=== PATIENT | female | born 1990 | race African-American/Black ===

== ENCOUNTER 2022-10-10 15:27 | Emergency (ER) | payer OTHER ==
[~2022-10-10] VITALS: Ht 172.7 cm; Wt 117.0 kg
[2022-10-10 18:57] LABS: CLARITY URINE CLEAR (CLEAR); COLOR URINE YELLOW (YELLOW); KETONES URINE NEGATIVE (NEGATIVE); LEUKOCYTE ESTERASE URINE NEGATIVE (NEGATIVE); NITRITE URINE NEGATIVE (NEGATIVE); OCCULT BLOOD URINE 3+ (NEGATIVE); PH URINE 6.5 (4.5-8.0); PROTEIN URINE NEGATIVE (NEGATIVE); SPECIFIC GRAVITY URINE 1.004 (1.005-1.030); UROBILINOGEN URINE 0.2 E.U./dL (0.2-1.0)
[2022-10-10] MEDS ORDERED: KETOROLAC 60MG/2ML VIAL IM ONE (19:45)
[2022-10-10] MEDS ORDERED: CEPH500C2 MT (19:57)
[2022-10-10] MEDS ORDERED: CEPHALEXIN 250MG CAPSULE PO ONE (20:15)
[2022-10-10 21:01] VITALS: BP 159/98
== END 2022-10-10 21:03 | disposition home or self-care (01) ==
LOC: ER 15:27
DX: N39.0 Urinary tract infection, site not specified (principal); J02.9 Acute pharyngitis, unspecified; I10 Essential (primary) hypertension; Z68.41 Body mass index [BMI] 40.0-44.9, adult; J45.909 Unspecified asthma, uncomplicated; E03.9 Hypothyroidism, unspecified
CPT/HCPCS: 81003; 81025; 96372; 99283; J1885; Z7610

== ENCOUNTER 2022-11-03 19:02 | Emergency (ER) | payer OTHER ==
[~2022-11-03] VITALS: Ht 172.7 cm; Wt 114.0 kg
[~2022-11-03 19:02] MED LIST: CEPH500C2 MT
[2022-11-03 19:07] VITALS: BP 123/82
[2022-11-03] MEDS ORDERED: ALBUTEROL (0.083%) 2.5MG/3ML NEB HHN STA (22:31)
[2022-11-03] MEDS ORDERED: IPRATROPIUM BROMIDE (0.02%) 0.5MG/2.5ML NEB HHN STA (22:31)
[2022-11-03] MEDS ORDERED: ALBU6.7H3 INH (22:34)
[2022-11-03] MEDS ORDERED: DEXAMETHASONE 2MG TABLET PO ONE (22:45)
[2022-11-04] MEDS ORDERED: NAPR500T7 MT (01:05)
== END 2022-11-04 01:00 | disposition home or self-care (01) ==
LOC: ER 19:02
DX: R06.2 Wheezing (principal); M25.572 Pain in left ankle and joints of left foot
CPT/HCPCS: 73590; 73610; 73630; 81025; 99284; J8540; Z7610

== ENCOUNTER 2023-03-23 07:19 | Emergency (ER) | payer MEDICAID, OTHER ==
[~2023-03-23] VITALS: Ht 172.7 cm; Wt 113.0 kg
[~2023-03-23 07:19] MED LIST changes: +ALBU6.7H3 INH; +NAPR500T7 MT
[2023-03-23 07:24] VITALS: BP 132/76; PULSE 87; RESP 20; TEMP 98; O2SAT 100
[2023-03-23 08:25] LABS: BASOPHILS % 0.8 % (0.0-2.0); EOSINOPHILS % 4.5 % (0.0-5.0); HEMATOCRIT. 31.6 % (36.0-48.0); HEMOGLOBIN. 10.2 g/dL (12.0-16.0); LYMPHOCYTES % 31.6 % (20.0-50.0); MEAN CORPUSCULAR HEMOGLOBIN 25.9 pg (28.0-32.0); MEAN PLATELET VOLUME 9.7 fl (7.4-10.4); MONOCYTES % 7.9 % (2.0-8.0); NEUTROPHILS % 55.2 % (40.0-76.0); PLATELET 199 x1000/uL (130-400); RED BLOOD CELL COUNT 3.95 mill/uL (4.2-5.4); RED CELL DISTRIBUTION WIDTH 13.9 % (11.6-14.6)
[2023-03-23 08:27] LABS: CLARITY URINE TURBID (CLEAR); COLOR URINE RED (YELLOW); KETONES URINE NEGATIVE (NEGATIVE); LEUKOCYTE ESTERASE URINE 2+ (NEGATIVE); NITRITE URINE POSITIVE (NEGATIVE); OCCULT BLOOD URINE 3+ (NEGATIVE); PH URINE 5.5 (4.5-8.0); PROTEIN URINE 3+ (NEGATIVE); SPECIFIC GRAVITY URINE 1.028 (1.005-1.030); UROBILINOGEN URINE 0.2 E.U./dL (0.2-1.0)
[2023-03-23 08:32] LABS: CHLORIDE 110 mEq/L (98-107)
[2023-03-23] MEDS ORDERED: NORE0.3536 MT (10:02)
== END 2023-03-23 10:18 | disposition home or self-care (01) ==
LOC: ER 07:27
DX: N93.8 Other specified abnormal uterine and vaginal bleeding (principal); N39.0 Urinary tract infection, site not specified; J45.909 Unspecified asthma, uncomplicated
CPT/HCPCS: 36415; 76830; 76856; 80053; 81003; 81025; 85025; 86850; 86900; 99284

== ENCOUNTER 2024-01-01 17:46 | Emergency (ER) | payer OTHER ==
[~2024-01-01] VITALS: Ht 177.8 cm; Wt 113.0 kg
[~2024-01-01 17:46] MED LIST changes: +NORE0.3536 MT
[2024-01-01 17:58] VITALS: BP 131/42; PULSE 88; RESP 20; TEMP 98.8; O2SAT 100
[2024-01-01 18:20] LABS: CLARITY URINE CLOUDY (CLEAR); COLOR URINE DARK YELLOW (YELLOW); GLUCOSE URINE NEGATIVE (NEGATIVE); KETONES URINE TRACE (NEGATIVE); LEUKOCYTE ESTERASE URINE 3+ (NEGATIVE); NITRITE URINE NEGATIVE (NEGATIVE); OCCULT BLOOD URINE TRACE (NEGATIVE); PROTEIN URINE 1+ (NEGATIVE); SPECIFIC GRAVITY URINE 1.026 (1.005-1.030)
[2024-01-01 18:32] LABS: BACTERIA URINE 2+
[2024-01-01 18:33] LABS: RBC URINE 0-2 /hpf (0-2); SQUAMOUS EPITHELIAL CELL URINE 1+ /lpf (RARE/1+)
[2024-01-01 18:34] LABS: WBC URINE 50-100 /hpf (0-2)
[2024-01-01 18:38] LABS: CHLORIDE 108 mEq/L (98-107); POTASSIUM 4.1 mEq/L (3.5-5.1); SODIUM 140 mEq/L (136-145)
[2024-01-01 18:39] LABS: CALCIUM 9.3 mg/dL (8.7-10.4); CARBON DIOXIDE 27 mEq/L (21-32)
[2024-01-01 18:41] LABS: BASOPHILS % 0.6 % (0.0-2.0); DIFFERENTIAL COMMENT 0; EOSINOPHILS % 3.1 % (0.0-5.0); HEMATOCRIT. 29.9 % (36.0-48.0); HEMOGLOBIN. 9.3 g/dL (12.0-16.0); LYMPHOCYTES % 24.5 % (20.0-50.0); MEAN CORPUSCULAR HEMOGLOBIN 21.9 pg (28.0-32.0); MEAN CORPUSCULAR HGB CONC 30.9 g/dL (31.0-37.0); MEAN CORPUSCULAR VOLUME 70.9 fL (81.0-99.0); MEAN PLATELET VOLUME 9.1 fl (7.4-10.4); MONOCYTES % 7.6 % (2.0-8.0); NEUTROPHILS % 64.2 % (40.0-76.0); PLATELET 257 x1000/uL (130-400); RED BLOOD CELL COUNT 4.22 mill/uL (4.2-5.4); RED CELL DISTRIBUTION WIDTH 16.2 % (11.6-14.6); WHITE BLOOD COUNT 6.4 x1000/uL (4.5-11.0)
[2024-01-01 18:44] LABS: GLUCOSE 91 mg/dL (70-105); UREA NITROGEN BLOOD 11 mg/dL (9-23)
[2024-01-01 18:46] LABS: ALANINE AMINOTRANSFERASE 10 IU/L (10-49); ALBUMIN 4.2 g/dL (3.2-4.8); ASPARTATE AMINOTRANSFERASE 19 IU/L (<34); BILIRUBIN DIRECT 0.1 mg/dL (<=3.0); BILIRUBIN TOTAL 0.3 mg/dL (0.1-1.0); PROTEIN TOTAL 7.6 g/dL (6.0-8.3)
[2024-01-01 18:52] LABS: HCG SCREEN NEGATIVE
[2024-01-01] MEDS ORDERED: IBUP-2028 MT (22:59)
[2024-01-01] MEDS ORDERED: CEPH500C2 MT (22:59)
[2024-01-01] MEDS ORDERED: LIDOCAINE HCL 1% 20ML VIAL (Pyxis) INJ INFIL ONE (23:00)
[2024-01-01] MEDS ORDERED: CEFTRIAXONE SODIUM 1G VIAL IM ONE (23:00)
[2024-01-01] MEDS ORDERED: ONDANSETRON 4MG ODT PO ONE (23:00)
[2024-01-01] MEDS ORDERED: KETOROLAC 60MG/2ML VIAL IM ONE (23:00)
== END 2024-01-02 00:18 | disposition home or self-care (01) ==
LOC: ER 17:46
DX: N39.0 Urinary tract infection, site not specified (principal); J45.909 Unspecified asthma, uncomplicated; Z98.890 Other specified postprocedural states; Z79.899 Other long term (current) drug therapy
CPT/HCPCS: 99283; 80076; 80048; 81003; 84703; 83690; 85025; 87086; 87186; 87077; 36415; Q0162; J0696; J1885; J3490

== ENCOUNTER 2024-02-14 08:20 | Emergency (ER) | payer OTHER ==
[~2024-02-14] VITALS: Ht 177.8 cm; Wt 127.0 kg
[~2024-02-14 08:20] MED LIST changes: +IBUP-2028 MT
[2024-02-14 08:34] VITALS: O2SAT 98
[2024-02-14 09:00] LABS: BASOPHILS % 0.6 % (0.0-2.0); DIFFERENTIAL COMMENT 0; EOSINOPHILS % 4.1 % (0.0-5.0); HEMATOCRIT. 29.7 % (36.0-48.0); LYMPHOCYTES % 20.7 % (20.0-50.0); MEAN CORPUSCULAR HEMOGLOBIN 21.8 pg (28.0-32.0); MEAN CORPUSCULAR HGB CONC 30.5 g/dL (31.0-37.0); MEAN CORPUSCULAR VOLUME 71.4 fL (81.0-99.0); MEAN PLATELET VOLUME 9.3 fl (7.4-10.4); MONOCYTES % 6.9 % (2.0-8.0); NEUTROPHILS % 67.7 % (40.0-76.0); PLATELET 225 x1000/uL (130-400); RED BLOOD CELL COUNT 4.15 mill/uL (4.2-5.4); RED CELL DISTRIBUTION WIDTH 16.9 % (11.6-14.6); WHITE BLOOD COUNT 5.4 x1000/uL (4.5-11.0)
[2024-02-14 09:14] LABS: CARBON DIOXIDE 21 mEq/L (21-32); CHLORIDE 103 mEq/L (98-107); POTASSIUM 3.4 mEq/L (3.5-5.1); SODIUM 136 mEq/L (136-145)
[2024-02-14 09:15] LABS: CALCIUM 8.5 mg/dL (8.7-10.4)
[2024-02-14 09:20] LABS: CREATININE 0.7 mg/dL (0.6-1.0); GLUCOSE 122 mg/dL (70-105); UREA NITROGEN BLOOD 7 mg/dL (9-23)
[2024-02-14 09:36] LABS: TROPONIN I HIGH SENSITIVITY < 4 ng/L (3.0-34)
[2024-02-14] MEDS: POTASSIUM CHLORIDE 20MEQ TABLET SR PO NR (10:00)
[2024-02-14] MEDS ORDERED: PNV1TABL76 MT (11:15)
[2024-02-14 11:42] VITALS: BP 134/79; PULSE 98; RESP 18; TEMP 98.3
== END 2024-02-14 11:49 | disposition home or self-care (01) ==
LOC: ER 08:41
DX: O26.891 Other specified pregnancy related conditions, first trimester (principal); O99.511 Diseases of the respiratory system complicating pregnancy, first trimester; R05.9 Cough, unspecified; I49.9 Cardiac arrhythmia, unspecified; Z3A.01 Less than 8 weeks gestation of pregnancy; Z20.822 Contact with and (suspected) exposure to COVID-19
CPT/HCPCS: 36415; 71045; 80048; 81025; 84484; 85025; 87426; 93005; 99284

== ENCOUNTER 2024-02-20 20:26 | Emergency (ER) | payer OTHER ==
[~2024-02-20] VITALS: Ht 172.7 cm; Wt 123.0 kg
[~2024-02-20 20:26] MED LIST changes: +PNV1TABL76 MT
[2024-02-20 20:36] VITALS: TEMP 98.5; O2SAT 100
[2024-02-20 20:37] VITALS: BP 119/61; PULSE 78; RESP 16
[2024-02-21 01:13] LABS: BASOPHILS % 0.6 % (0.0-2.0); DIFFERENTIAL COMMENT 0; EOSINOPHILS % 5.1 % (0.0-5.0); HEMATOCRIT. 32.6 % (36.0-48.0); LYMPHOCYTES % 32.8 % (20.0-50.0); MEAN CORPUSCULAR HEMOGLOBIN 22.3 pg (28.0-32.0); MEAN CORPUSCULAR HGB CONC 30.7 g/dL (31.0-37.0); MEAN CORPUSCULAR VOLUME 72.6 fL (81.0-99.0); MEAN PLATELET VOLUME 10.2 fl (7.4-10.4); MONOCYTES % 9.6 % (2.0-8.0); NEUTROPHILS % 51.9 % (40.0-76.0); PLATELET 246 x1000/uL (130-400); RED BLOOD CELL COUNT 4.49 mill/uL (4.2-5.4); RED CELL DISTRIBUTION WIDTH 17.1 % (11.6-14.6); WHITE BLOOD COUNT 6.2 x1000/uL (4.5-11.0)
[2024-02-21 01:19] LABS: CHLORIDE 105 mEq/L (98-107); POTASSIUM 3.4 mEq/L (3.5-5.1); SODIUM 137 mEq/L (136-145)
[2024-02-21 01:20] LABS: CALCIUM 9.5 mg/dL (8.7-10.4); CARBON DIOXIDE 23 mEq/L (21-32)
[2024-02-21 01:25] LABS: CREATININE 0.7 mg/dL (0.6-1.0); GLUCOSE 94 mg/dL (70-105); UREA NITROGEN BLOOD 9 mg/dL (9-23)
[2024-02-21 01:39] LABS: B-HCG QUANTITATIVE 9873 mIU/mL (<3)
== END 2024-02-21 03:37 | disposition home or self-care (01) ==
LOC: ER 20:33
DX: O46.91 Antepartum hemorrhage, unspecified, first trimester (principal); J45.909 Unspecified asthma, uncomplicated; Z79.899 Other long term (current) drug therapy; Z3A.01 Less than 8 weeks gestation of pregnancy
CPT/HCPCS: 36415; 76801; 80048; 84702; 85025; 86850; 86900; 99284

== ENCOUNTER 2025-07-26 19:28 | Emergency (ER) | payer OTHER ==
[~2025-07-26] VITALS: Ht 175.3 cm; Wt 122.0 kg
[~2025-07-26 19:28] MED LIST changes: +NAPR-1486 MT; -NAPR500T7 MT
[2025-07-26 20:24] LABS: BASOPHILS % 0.6 % (0.0-2.0); EOSINOPHILS % 3.4 % (0.0-5.0); HEMATOCRIT. 33.8 % (36.0-48.0); HEMOGLOBIN. 10.7 g/dL (12.0-16.0); LYMPHOCYTES % 35.7 % (20.0-50.0); MEAN PLATELET VOLUME 10.4 fl (7.4-10.4); MONOCYTES % 6.4 % (2.0-8.0); NEUTROPHILS % 53.9 % (40.0-76.0); PLATELET 215 x1000/uL (130-400); RED BLOOD CELL COUNT 4.17 mill/uL (4.2-5.4); RED CELL DISTRIBUTION WIDTH 14.7 % (11.6-14.6)
[2025-07-26] MEDS: DEXAMETHASONE 10 MG/ML VIAL IM ONE (20:25)
[2025-07-26 20:38] LABS: CREATININE 0.8 mg/dL (0.6-1.0); UREA NITROGEN BLOOD 7 mg/dL (9-23)
[2025-07-26 20:40] LABS: TROPONIN I HIGH SENSITIVITY < 4 ng/L (3.0-34)
[2025-07-26 20:50] VITALS: PULSE 85; RESP 18; O2SAT 97
[2025-07-26] MEDS: ALBUTEROL (0.083%) 2.5MG/3ML NEB HHN ONE (20:54)
[2025-07-26] MEDS ORDERED: ALBU05 NEB (21:15)
[2025-07-26] MEDS ORDERED: ALBU90AE INH (21:15)
[2025-07-26] MEDS ORDERED: P50 MT (21:16)
[2025-07-26 21:30] VITALS: BP 120/76; PULSE 84; RESP 18; TEMP 36.7; O2SAT 99
== END 2025-07-26 21:46 | disposition home or self-care (01) ==
LOC: ER 19:28
DX: J45.901 Unspecified asthma with (acute) exacerbation (principal); R42 Dizziness and giddiness; E03.9 Hypothyroidism, unspecified; Z79.1 Long term (current) use of non-steroidal anti-inflammatories (NSAID)
CPT/HCPCS: 80048; 85025; 84484; 36415; 71045; 94640; 93005; 96372; 99285; J1100; Z7610 ×4; 94070